=== PATIENT | male | born 1945 | race Caucasian/White ===

== ENCOUNTER 2018-04-19 06:35 | Day surgery (SDC) | payer MEDICARE, OTHER ==
[2018-04-16 13:08] VITALS: BMI 27.1
[2018-04-19 07:34] LABS: #Basophils 0.1 thou/uL (0.0-0.2); #Eosinphils 0.4 thou/uL (0.0-0.7); #Lymphocytes 3.6 thou/uL (1.20-3.40); #Monocytes 0.5 thou/uL (0.11-0.59); %Eosinophils 4.8 % (0.0-10.0); %Lymphocytes 47.8 % (21.0-51.0); %Monocytes 6.3 % (0.0-10.0); %Neutrophils 40.2 % (42.0-75.0); Hemoglobin 12.6 g/dL (14.0-18.0); Mean Corpuscular HGB CONC 31.8 g/dL (32.0-36.0); Mean Corpuscular Hemoglobin 21.2 pg (27.0-31.0); Mean Corpuscular Volume 66.6 fL (78.0-98.0); Mean Platelet Volume 7.8 fL (7.4-10.4); Platelet Count 445 thou/uL (130-400); RBC Distribution Width 14.5 % (11.5-14.5); Red Blood Cell (RBC) Count 5.92 mill/uL (4.70-6.10); White Blood Cell (WBC) Count 7.5 thou/uL (4.8-10.8)
[2018-04-19 07:46] LABS: Anion Gap 11 mmol/L (10-20); BUN (Urea Nitrogen) 14 mg/dL (8.4-25.7); Calc. Creatinine Clearance 55 mL/min (70-130); Calcium 8.8 mg/dL (7.8-10.44); Carbon Dioxide 27 mmol/L (23-31); Chloride 104 mmol/L (98-107); Estimated GFR-MDRD 46; Glucose 92 mg/dL (83-110); Potassium 4.5 mmol/L (3.5-5.1); Sodium 137 mmol/L (136-145)
[2018-04-19 07:54] LABS: Hypochromia SLIGHT = 6-15 cells (100X) (0-5/hpf); MDiff Complete? YES; Microcytosis MODERATE=15-30 cells (100X) (0-5/hpf); PLT Morphology Comment Appears Increased; Polychromasia MODERATE = 3-4 cells (100X) (0-2/hpf)
[2018-04-19] MEDS ORDERED: CEFAZOLIN/Water 2 GM/20 ML SYRINGE ONE (07:56)
[2018-04-19] MEDS ORDERED: PROPOFOL 20 ML ONE (08:08)
[2018-04-19] MEDS ORDERED: Bupivacaine/Epinephrine 0.25% 30 ML VIAL ONE (08:21)
[2018-04-19] MEDS ORDERED: Bupivacaine HCl 0.5%/Epinephrine 1:200,000/PF 30 ml Vial ONE (08:21)
[2018-04-19] MEDS ORDERED: Fentanyl 100 MCG/2 ML VIAL ONE (08:37)
--- NOTE | 2018-04-19 10:45 | OP ---
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 POSTOPERATIVE DIAGNOSES: 1. Complex tear including the body and posterior horn of the medial meniscus including a radial tear , large flap tear component as well as multiple longitudinal tears. 2. Unstable chondral flap, medial femoral condyle, which left the patient with a small area of grade 4 damage. Also, multiple small cartilaginous pieces floating through the knee. PROCEDURES: 1. Left knee arthroscopy with partial medial meniscectomy. 2. Debridement and shaving of unstable chondral flaps as well as removing any loose chondral pieces. SURGEON: Barrett Velazquez M.D. EVENT AV OPERATOR: There was none. ANESTHESIA: The patient had TIVA with local. DISPOSITION: He did go to the recovery room in stable condition. INDICATIONS: This is a 72-year-old male, who comes in complaining of pain, catching, and swelling in the left knee. He was evaluated, had plain films and an MRI and is felt at this time that he had a degenerative meniscus tear with a large flap component and some chondral damage in the medial compart ment, and we had discussions of one-time surgery only with a knee replacement versus debridement of t he chondral fragments as well as the flap component of the meniscus. At this time, he opted to have arthroscopy. DESCRIPTION OF PROCEDURE: After all appropriate consent forms were explained and signed, he was take n back to the operating room and at this time was given a TIVA anesthetic. Once the level of anesthe phu was appropriate, the tourniquet was placed on the left thigh and leg was placed in an arthroscopi c leg diaz. It was then prepped and draped in standard surgical fashion. The limb was then exsang uinated and tourniquet was taken to 250 mmHg. Local was used to infiltrate for lateral portal, 11 bl chato was then used to make our portal site. Scope was placed into the knee joint. Again, a numbing m edicine was then used to make our medial portal and 11 blade was again used to make our medial portal . Diagnostic arthroscopy commenced in the notch. The ACL and PCL were probed and found to be intact . The medial compartment showed overall the femur to be in pretty good condition. There was a large unstable chondral flap on the medial femoral condyle when this was removed. There was a small 8 mm in diameter, grade 4 defect. Remaining cartilage overall was in good condition. The medial meniscus was found to have a significant degenerative complex tear including a large flap fragment, which had flipped down into the tibial recess as well as multiple longitudinal component tears and a horizonta l cleavage component as well. Again, partial medial meniscectomy was performed using meniscal biter and shaver back to a stable base. Lateral compartment was evaluated and needed no treatment. Medial gutter was drove through and through, and other than some synovitic changes, there is no significant problem. Patellofemoral joint overall showed the trochlea to be in good condition. There was a sma ll area that needed debridement on the patella and the lateral gutter did have some copious soft tiss ue, which had grown just off the edge of the lateral femoral condyle. This was debrided with the sha willi, but other than this, no loose bodies were noted in the lateral gutter. At this time, the scope was removed and the knee was drained. Portals closed with nylon stitch. Bulky sterile dressing was applied. Tourniquet was let down. Toes pinked up nicely. The patient was awakened and taken to the recovery room in stable condition. All counts were correct at the end of the case and he did receiv e preoperative IV antibiotics.
--- NOTE | 2018-04-20 09:35 | EKG ---
Test Reason : PREOP Blood Pressure : / mmHG Vent. Rate : 066 BPM Atrial Rate : 066 BPM P-R Int : 194 ms QRS Dur : 138 ms QT Int : 458 ms P-R-T Axes : 035 -56 011 degrees QTc Int : 480 ms Normal sinus rhythm Left axis deviation Right bundle branch block Abnormal ECG When compared with ECG of 01-AUG-1992 12:04, Right bundle branch block is now Present Confirmed by HANSA YIP ([id number]) on 04/20/2018 9:34:45 AM Referred By: SRINIVAS Confirmed By:HANSA YIP
== END 2018-04-19 11:30 | disposition home or self-care (01) ==
LOC: SDC 06:35
PROVIDERS: ATTEND Orthopaedic Surgery
PROC: 0SBD4ZZ Excision of Left Knee Joint, Percutaneous Endoscopic Approach (ICD-10-PCS; principal; 2018-04-19)
DX: S83.232A Complex tear of medial meniscus, current injury, left knee, initial encounter (principal); M95.8 Other specified acquired deformities of musculoskeletal system; Z79.899 Other long term (current) drug therapy; X50.1XXA Overexertion from prolonged static or awkward postures, initial encounter
CPT/HCPCS: 29881; 80048; 85025; 93005; 97139; G8978; G8979; G8980; 36415; 93010; J0670; J2704; J3010

== ENCOUNTER 2021-05-11 12:31 | Emergency (ER) | payer MEDICARE, OTHER ==
[2021-05-11] MEDS ORDERED: Ketorolac Tromethamine 30 MG/ML VIAL ONE (13:49)
[2021-05-11 14:06] LABS: #Eosinphils 0.4 thou/uL (0.0-0.7); #Lymphocytes 1.6 thou/uL (1.20-3.40); #Neutrophils 8.7 thou/uL (1.40-6.50); %Basophils 0.2 % (0.0-1.0); %Eosinophils 3.2 % (0.0-10.0); %Lymphocytes 13.6 % (21.0-51.0); %Monocytes 8.6 % (0.0-10.0); %Neutrophils 74.4 % (42.0-75.0); Hemoglobin 15.2 g/dL (14.0-18.0); Red Blood Cell (RBC) Count 6.66 mill/uL (4.70-6.10); White Blood Cell (WBC) Count 11.6 thou/uL (4.8-10.8)
[2021-05-11 14:14] LABS: Mean Corpuscular HGB CONC 33.9 g/dL (32.0-36.0); Mean Corpuscular Hemoglobin 22.8 pg (27.0-31.0); Mean Platelet Volume 9.3 fL (7.4-10.4); Platelet Count 300 thou/uL (130-400); RBC Distribution Width 14.8 % (11.5-14.5)
[2021-05-11 14:23] LABS: ALT (SGPT) 26 U/L (8-55); AST (SGOT) 27 U/L (5-34); Albumin 4.6 g/dL (3.4-4.8); Alkaline Phosphatase 78 U/L (40-110); Anion Gap 15 mmol/L (10-20); BUN (Urea Nitrogen) 18 mg/dL (8.4-25.7); Bilirubin, Total 0.8 mg/dL (0.2-1.2); Calc. Creatinine Clearance 0 mL/min (70-130); Calcium 9.6 mg/dL (7.8-10.44); Carbon Dioxide 24 mmol/L (23-31); Chloride 97 mmol/L (98-107); Globulin 3.7 g/dL (2.4-3.5); Glucose 95 mg/dL (83-110); Potassium 4.9 mmol/L (3.5-5.1); Protein, Total 8.3 g/dL (5.8-8.1); Sodium 131 mmol/L (136-145)
[2021-05-11 14:31] LABS: MDiff Complete? YES; Mean Corpuscular Volume 67.3 fL (78.0-98.0); Microcytosis SLIGHT = 6-15 cells (100X) (0-5/hpf); Platelet Morphology Comment Appears Adequate
[2021-05-11 15:50] LABS: Bacteria/HPF Rare-Few HPF (None Seen); Bilirubin Negative (Negative); Blood, Urine Negative (Negative); Clarity Clear (Clear); Glucose, Urine (Dipstick) Normal (Negative); Ketone, Urine 10 mg/dL (Negative); Leukocyte 25 Leu/uL (Negative); Nitrite Negative (Negative); Protein, Urine (Dipstick) 30 mg/dL (Neg-Trace); RBC/HPF 0-3 HPF (0-3); Specific Gravity, Urine 1.028 (1.002-1.036); Squamous Epithelial None Seen HPF (0-3); Urobilinogen Normal mg/dL (Less than 2); pH, Urine 5.5 (5.0-9.0)
[2021-05-11] MEDS ORDERED: cefTRIAXone\\ROCEPHIN 2 GM VIAL ONE (16:18)
[2021-05-11 23:45] LABS: SARS-CoV-2 PCR by NAA Not Detected (NotDetected)
== END 2021-05-11 18:15 | disposition home or self-care (01) ==
LOC: ERS 12:31
DX: N39.0 Urinary tract infection, site not specified (principal); E86.0 Dehydration; M62.830 Muscle spasm of back; J40 Bronchitis, not specified as acute or chronic; Z20.822 Contact with and (suspected) exposure to COVID-19
CPT/HCPCS: 71045; 74176; 80053; 85025; 87086; 93005; 94760; 96365; 96375; 99285; U0003; U0005; 81003; 81015; J0696; J1885